=== PATIENT | male | born 1995 | race Caucasian/White ===

== ENCOUNTER 2018-04-16 13:57 | Emergency (ER) | payer OTHER ==
[2018-04-16] MEDS ORDERED: HYDROMORPHONE HCL INJ/PF 2 MG/ML AMPULE IM ONE (14:06)
[2018-04-16] MEDS ORDERED: ONDANSETRON HCL INJ/PF 4 MG/2 ML SDV IV ONE (14:06)
--- NOTE | 2018-04-16 14:50 | RADIOLOGY REPORT (SQ) ---
EXAM DESCRIPTION: ANKLE LEFT COMPLETE COMPLETED DATE/TIME: 04/16/2018 2:36 pm REASON FOR STUDY: injury COMPARISON: None. NUMBER OF VIEWS: Three views. TECHNIQUE: AP, lateral, and oblique radiographic images acquired of the left ankle. LIMITATIONS: None. FINDINGS: MINERALIZATION: Normal. BONES: Spiral fracture of the distal fibular diaphysis above the syndesmosis with about 1 shaft width posterior displacement. Lucency in the medial malleolus seen on the AP view only. JOINTS: No effusions. SOFT TISSUES: Diffuse swelling medial and lateral. OTHER: No other significant finding. IMPRESSION: Collazo C ankle fracture with suspected nondisplaced medial malleolar fracture. TECHNICAL DOCUMENTATION: JOB ID: [id number] [employer]- All Rights Reserved Reading location - IP/workstation name: [email or web address]
--- NOTE | 2018-04-16 15:06 | ER Document Report ---
ED General - General Chief Complaint: Ankle Injury Stated Complaint: ANKLE INJURY Time Seen by Provider: 04/16/18 14:04 TRAVEL OUTSIDE OF THE [place] IN LAST 30 DAYS: No - HPI Patient complains to provider of: Left ankle injury Notes: Patient coming in after inversion injury to the left ankle with lateral malleolus swelling. Patient difficulty in ambulating. Patient denies any fevers chills nausea vomiting diarrhea. Denies any other injuries. - Related Data Allergies/Adverse Reactions: No Known Allergies Allergy (Verified 04/16/18 14:03) Past Medical History - Social History Smoking Status: Current Every Day Smoker Frequency of alcohol use: Social Drug Abuse: None Family History: Reviewed & Not Pertinent Patient has suicidal ideation: No Patient has homicidal ideation: No Renal/ Medical History: Denies: Hx Peritoneal Dialysis Review of Systems - Review of Systems Constitutional: No symptoms reported EENT: No symptoms reported Cardiovascular: No symptoms reported Respiratory: No symptoms reported Gastrointestinal: No symptoms reported Genitourinary: No symptoms reported Male Genitourinary: No symptoms reported Musculoskeletal: Other - Left ankle pain and swelling Skin: No symptoms reported Hematologic/Lymphatic: No symptoms reported Neurological/Psychological: No symptoms reported -: Yes All other systems reviewed and negative Physical Exam - Vital signs Vitals: Temp Pulse Resp BP Pulse Ox 98.0 F 86 18 134/59 H 97 04/16/18 14:02 04/16/18 14:02 04/16/18 14:02 04/16/18 14:02 04/16/18 14:02 Interpretation: Normal - General General appearance: Appears well, Alert - HEENT Head: Normocephalic, Atraumatic Eyes: Normal Pupils: PERRL - Respiratory Respiratory status: No respiratory distress Chest status: Nontender Breath sounds: Normal Chest palpation: Normal - Cardiovascular Rhythm: Regular Heart sounds: Normal auscultation Murmur: No - Abdominal Inspection: Normal Distension: No distension Bowel sounds: Normal Tenderness: Nontender Organomegaly: No organomegaly - Back Back: Normal, Nontender - Extremities General upper extremity: Normal inspection, Nontender, Normal color, Normal ROM , Normal temperature General lower extremity: Normal color, Normal temperature, Other - Malleolus swelling. Tender to touch decreased range of motion due to pain unable to bear weight right unaffected. No: Cali's sign - Neurological Neuro grossly intact: Yes Cognition: Normal Orientation: AAOx4 Banks Coma Scale Eye Opening: Spontaneous Janeen Coma Scale Verbal: Oriented Banks Coma Scale Motor: Obeys Commands Janeen Coma Scale Total: 15 Speech: Normal Motor strength normal: LUE, RUE, LLE, RLE Sensory: Normal - Psychological Associated symptoms: Normal affect, Normal mood - Skin Skin Temperature: Warm Skin Moisture: Dry Skin Color: Normal Course - Re-evaluation Re-evalutation: 04/16/18 20:23 Personally reviewed the x-ray myself showing a fibular fracture. No other critical pathology seen on evaluation. Patient was placed in the splint with crutches patient was discharged home follow-up primary care physician orthopedics. - Vital Signs Vital signs: Temp Pulse Resp BP Pulse Ox 98.3 F 68 17 121/67 99 04/16/18 15:12 04/16/18 15:12 04/16/18 15:12 04/16/18 15:12 04/16/18 15:12 Procedures - Immobilization Left Ankle Pre-Proc Neuro Vasc Exam: Normal Immobilizer type: Short Leg Posterior Performed by: PCT Post-Proc Neuro Vasc Exam: Normal Alignment checked and good: No Discharge - Discharge Clinical Impression: Fibula fracture Qualifiers: Encounter type: initial encounter Fibula location: distal Fracture type: closed Fracture morphology: unspecified fracture morphology Laterality: left Qualified Code(s): S82.832A - Other fracture of upper and lower end of left fibula, initial encounter for closed fracture Condition: Good Disposition: HOME, SELF-CARE Instructions: Use of Crutches ([facility]), Fracture of Distal Fibula ([facility]), Oral Narcotic Medication ([facility]) Additional Instructions: Your x-ray today shows signs of a fibula fracture. I would highly recommend she follow-up with your primary care physician return to ER symptoms worsen. Prescriptions: Ibuprofen [Motrin 600 mg Tablet] 600 mg PO Q8HP PRN #21 tablet PRN Reason: Morphine Sulfate [Morphine Ir 15 Mg Tablet] 15 mg PO TID #18 tablet Referrals: JENNIFER SOTO MD [ACTIVE STAFF] - Follow up in 3-5 days
[2018-04-16 15:15] VITALS: BP 121/67
== END 2018-04-16 15:14 | disposition home or self-care (01) ==
LOC: ER 13:57
DX: S82.442A Displaced spiral fracture of shaft of left fibula, initial encounter for closed fracture (principal); W01.0XXA Fall on same level from slipping, tripping and stumbling without subsequent striking against object, initial encounter; Y93.02 Activity, running; F17.200 Nicotine dependence, unspecified, uncomplicated
CPT/HCPCS: 99283; 73610; 29515; J1170